=== PATIENT | male | born 1980 | race Caucasian/White ===

== ENCOUNTER 2017-11-10 12:05 | Emergency (ER) | payer OTHER ==
[~2017-11-10] VITALS: Ht 175.3 cm; Wt 90.7 kg
[2017-11-10 12:10] VITALS: Ht 175.3 cm; Wt 90.7 kg
[2017-11-10 15:14] VITALS: BP 134/76
== END 2017-11-10 15:14 | disposition home or self-care (01) ==
LOC: ED 12:05
DX: M10.9 Gout, unspecified (principal)
CPT/HCPCS: J1885

== ENCOUNTER 2018-07-26 15:09 | Emergency (ER) | payer OTHER ==
[~2018-07-26] VITALS: Ht 175.3 cm; Wt 81.6 kg
[2018-07-26 15:24] VITALS: BP 125/79; Ht 175.3 cm; Wt 81.6 kg
== END 2018-07-26 16:00 | disposition other institution (70) ==
LOC: ED 15:09
DX: Z02.89 Encounter for other administrative examinations (principal)

== ENCOUNTER 2019-03-09 15:33 | Emergency (ER) | payer OTHER ==
[~2019-03-09] VITALS: Ht 180.3 cm; Wt 84.4 kg
[2019-03-09 15:48] VITALS: Ht 180.3 cm; Wt 84.4 kg
[2019-03-09 16:57] VITALS: BP 124/73
== END 2019-03-09 16:57 | disposition home or self-care (01) ==
LOC: ED 15:33
DX: S39.012A Strain of muscle, fascia and tendon of lower back, initial encounter (principal); X50.0XXA Overexertion from strenuous movement or load, initial encounter; Y93.89 Activity, other specified; Y92.89 Other specified places as the place of occurrence of the external cause; Y99.8 Other external cause status
CPT/HCPCS: J1885